=== PATIENT | female | born 2000 | race African-American/Black ===

== ENCOUNTER 2021-07-16 15:14 | Outpatient (CLI) | payer OTHER | END 2021-07-16 15:15 | disposition home or self-care (01) | LOC: CSHULT 15:14 | PROVIDERS: ATTEND Family Medicine | DX: O09.892 Supervision of other high risk pregnancies, second trimester (principal); Z3A.25 25 weeks gestation of pregnancy | CPT/HCPCS: 76805 ==

== ENCOUNTER 2021-10-07 07:55 | Inpatient (IN) | payer OTHER ==
[2021-10-07 08:14] VITALS: BMI 33.2
[2021-10-07] MEDS ORDERED: Diphenoxylate HCl/Atropine Tablet PO PRN ×2 (09:25)
[2021-10-07] MEDS ORDERED: Carboprost 250 MCG/ML AMP IM PRN (09:25)
[2021-10-07] MEDS ORDERED: Ondansetron PF 4 MG/2 ML Vial IVP PRN ×2 (09:25→11:01)
[2021-10-07] MEDS ORDERED: Butorphanol Tartrate 1 MG/ML VIAL SLOW IVP PRN (09:25)
[2021-10-07] MEDS ORDERED: Promethazine HCl 25 MG/ML VIAL IM PRN ×2 (09:25→11:01)
[2021-10-07] MEDS ORDERED: Lidocaine 1% (PF) 30 ML VIAL SC PRN (09:25)
[2021-10-07] MEDS ORDERED: HYDROcodone/Acetaminophen 5/325 mg Tablet PO PRN ×2 (09:25)
[2021-10-07] MEDS ORDERED: Acetaminophen 500 MG TAB PO PRN (09:25)
[2021-10-07] MEDS ORDERED: Misoprostol 200 MCG TAB PR PRN (09:25)
[2021-10-07] MEDS ORDERED: Methylergonovine 0.2 MG/ML VIAL IM PRN (09:25)
[2021-10-07] MEDS ORDERED: hydrALAZINE 20 MG/ML VIAL SLOW IVP PRN ×2 (09:25→11:01)
[2021-10-07] MEDS ORDERED: Ibuprofen 800 MG TAB PO PRN (09:25)
[2021-10-07] MEDS ORDERED: NS w/ Oxytocin 30 units 500 ML IV SCH ×2 (09:30→11:01)
[2021-10-07] MEDS ORDERED: Lactated Ringer's 1,000 ML IV SCH (09:30)
[2021-10-07] MEDS ORDERED: Penicillin G Potassium 5 MILL.UNITS in Sodium Chloride 0.9% 100 ML IVPB SCH (09:45)
[2021-10-07] MEDS ORDERED: Penicillin G Potassium 5 MILL.UNITS VIAL ONE (09:48)
[2021-10-07 10:01] LABS: Mean Corpuscular HGB CONC 33.5 g/dL (32.0-36.0); Mean Corpuscular Volume 80.4 fl (81.6-98.3); Mean Platelet Volume 10.1 fl (7.4-10.4); Platelet Count 303 10x3/uL (150-450); RBC Distribution Width 12.9 % (11.5-14.5); Red Blood Cell (RBC) Count 4.08 10x6/uL (3.90-5.03); White Blood Cell (WBC) Count 11.4 10x3/uL (3.5-10.5)
[2021-10-07] MEDS ORDERED: Fentanyl 2 mcg/Bup 0.1% Cadd 0 ML ONE (10:06)
[2021-10-07] MEDS ORDERED: NS w/ Oxytocin 30 units 500 ML ONE (10:16)
[2021-10-07] MEDS ORDERED: Lidocaine 1% (PF) 30 ML VIAL ONE (10:16)
[2021-10-07 10:33] LABS: Hep B Surf Ag Non-Reactive S/CO (NonReactive)
[2021-10-07 10:34] LABS: Syphilis Antibody Nonreactive (Nonreactive); Syphilis Antibody Index 0.04 S/CO (<1.00 Non-Reactive)
[2021-10-07 10:43] LABS: HBSAg Index 0.17 S/CO (0-0.99)
[2021-10-07] MEDS ORDERED: Milk Of Magnesia 30 ML UDCUP PO PRN (11:01)
[2021-10-07] MEDS ORDERED: Bisacodyl 10 MG SUPP PR PRN (11:01)
[2021-10-07] MEDS ORDERED: Boostrix 0.5 ML (Tdap) VIAL IM ONE (11:01)
[2021-10-07] MEDS: HYDROcodone/Acetaminophen 5/325 mg Tablet PO PRN ×2 (11:31→20:14)
[2021-10-07] MEDS: Ferrous Sulfate 325 MG TAB PO SCH (13:26)
[2021-10-07] MEDS: Ibuprofen 800 MG TAB PO SCH ×2 (13:35→22:15)
[2021-10-07] MEDS ORDERED: Penicillin G 2.5 MILL.units 2.5 MILL.UNITS in Premix Bag 1 BAG IVPB SCH (14:00)
[2021-10-07 16:33] LABS: SARS-CoV-2 NAA Rapid Test Not Detected (NotDetected)
[2021-10-07] MEDS: Docusate 100 MG CAP PO SCH (22:16)
[2021-10-08] MEDS: Ibuprofen 800 MG TAB PO SCH ×3 (05:04→21:44)
[2021-10-08] MEDS ORDERED: cloNIDine 0.1 MG TAB PO PRN (07:30)
[2021-10-08] MEDS: Ferrous Sulfate 325 MG TAB PO SCH (07:33)
[2021-10-08] MEDS: NIFEdipine XL 30 MG TAB PO SCH (08:38)
[2021-10-08] MEDS: Prenatal Vitamin 1 TAB PO SCH (08:38)
[2021-10-08] MEDS: Docusate 100 MG CAP PO SCH ×2 (08:39→21:43)
[2021-10-09] MEDS: Ibuprofen 800 MG TAB PO SCH ×2 (05:47→12:50)
[2021-10-09] MEDS: Ferrous Sulfate 325 MG TAB PO SCH ×2 (08:30→14:25)
[2021-10-09] MEDS: Prenatal Vitamin 1 TAB PO SCH (09:14)
[2021-10-09] MEDS: NIFEdipine XL 30 MG TAB PO SCH (09:14)
[2021-10-09] MEDS: Docusate 100 MG CAP PO SCH (09:14)
[2021-10-09 16:57] VITALS: BP 132/87; TEMP 98.2
== END 2021-10-09 19:15 | disposition home or self-care (01) | DRG 807 ==
LOC: CSHLD/OP 07:55 → EEVIPCON 07:55 → CSHLD 10:45 → CSHPP 12:58
PROVIDERS: ADMIT Family Medicine; ATTEND Family Medicine
PROC: 10E0XZZ Delivery of Products of Conception, External Approach (ICD-10-PCS; principal; 2021-10-07)
DX: O99.824 Streptococcus B carrier state complicating childbirth (principal); Z37.0 Single live birth; O36.5990 Maternal care for other known or suspected poor fetal growth, unspecified trimester, not applicable or unspecified; Z20.822 Contact with and (suspected) exposure to COVID-19; Z3A.38 38 weeks gestation of pregnancy
CPT/HCPCS: 36415; 85027; 86780; 86850; 86900; 86901; 87340; 99285; J2001; J2540; J2590; U0002

== ENCOUNTER 2025-01-22 14:47 | Emergency (ER) | payer OTHER, SELFPAY | END 2025-01-22 15:55 | disposition home or self-care (01) | LOC: CSHERS 14:47 | DX: M54.30 Sciatica, unspecified side (principal) | CPT/HCPCS: 99283 ==